=== PATIENT | female | born 1960 | race Hispanic/Latino ===

== ENCOUNTER → 2016-07-15 | Outpatient (CLI) | payer OTHER ==
--- OUTSIDE RECORDS SUMMARY | 2016-07-15 16:07 | XMS REPORT | Continuity of Care Document ---
Author Author [facility] Organization [facility] Address Unknown Phone Unavailable Allergies Medications Problems Date Dx Coded Attending Type Code Diagnosis Diagnosed By 09/28/2008 BERTRAM TREVIZO APRN 034.0 STREPTOCOCCAL SORE THROAT 09/28/2008 LAMONT COFFMAN APRN 034.0 STREPTOCOCCAL SORE THROAT 09/28/2008 ESTES LOWELL ALTAMIRANOA K 034.0 STREPTOCOCCAL SORE THROAT 09/28/2008 ESTES DO AMAN K 034.0 STREPTOCOCCAL SORE THROAT 03/01/2009 BERTRAM TREVIZO APRN E 487.1 INFLUENZA, WITH OTHER RESPIRATORY MANIFESTATIONS 03/01/2009 LAMONT COFFMAN APRN 487.1 INFLUENZA, WITH OTHER RESPIRATORY MANIFESTATIONS 03/01/2009 ESTES DO AMAN K 487.1 INFLUENZA, WITH OTHER RESPIRATORY MANIFESTATIONS 03/01/2009 ESTES DO, AMAN K 487.1 INFLUENZA, WITH OTHER RESPIRATORY MANIFESTATIONS 12/10/2010 BERTRAM TREVIZO APRN E 278.02 Overweight 12/10/2010 EATLAMONT GREENBERG APRN L 278.02 Overweight 12/10/2010 ESTES DOLOWELLA K 278.02 Overweight 12/10/2010 ESTES DO, AMAN K 278.02 Overweight 12/16/2010 BERTRAM TREVIZO APRN E 244.9 HYPOTHYROIDISM 12/16/2010 BERTRAM TREVIZO APRN E 790.29 HYPERGLYCEMIA 12/16/2010 LAMONT COFFMAN APRN L 244.9 HYPOTHYROIDISM 12/16/2010 LAMONT COFFMAN APRN L 790.29 HYPERGLYCEMIA 12/16/2010 ESTES DO, AMAN K 244.9 HYPOTHYROIDISM 12/16/2010 ESTES DO, AMAN K 790.29 HYPERGLYCEMIA 12/16/2010 ESTES DO, AMAN K 244.9 HYPOTHYROIDISM 12/16/2010 ESTES DO, AMAN K 790.29 HYPERGLYCEMIA 12/24/2010 BERTRAM TREVIZO APRN E 277.7 DYSMETABOLIC SYNDROME X 12/24/2010 HELLWIG BODY DESIGNER, BERTRAM E 616.10 VAGINITIS 12/24/2010 HELLWIG BODY DESIGNER, BERTRAM E 623.7 VAGINAL POLYP 12/24/2010 HELLWIG BODY DESIGNER, BERTRAM E 625.0 FEMALE DYSPAREUNIA DUE TO A PHYSICAL CONDITION 12/24/2010 JOSELINE BODY DESIGNERKASIEE E V72.31 ROUTINE PELVIC EXAM 12/24/2010 EATON BODY DESIGNER LAMONT L 277.7 DYSMETABOLIC SYNDROME X 12/24/2010 EATON BODY DESIGNER, LAMONT L 616.10 VAGINITIS 12/24/2010 EATON BODY DESIGNER, LAMONT L 623.7 VAGINAL POLYP 12/24/2010 EATON BODY DESIGNER, LAMONT L 625.0 FEMALE DYSPAREUNIA DUE TO A PHYSICAL CONDITION 12/24/2010 EATON BODY DESIGNER, LAMONT L V72.31 ROUTINE PELVIC EXAM 12/24/2010 ESTES DO, AMAN K 277.7 DYSMETABOLIC SYNDROME X 12/24/2010 ESTES DO, AMAN K 616.10 VAGINITIS 12/24/2010 ESTES DO, AMAN K 623.7 VAGINAL POLYP 12/24/2010 ESTES DO, AMAN K 625.0 FEMALE DYSPAREUNIA DUE TO A PHYSICAL CONDITION 12/24/2010 ESTES DO, AMAN K V72.31 ROUTINE PELVIC EXAM 12/24/2010 ESTES DO, AMAN K 277.7 DYSMETABOLIC SYNDROME X 12/24/2010 ESTES DO, AMAN K 616.10 VAGINITIS 12/24/2010 ESTES DO, AMAN K 623.7 VAGINAL POLYP 12/24/2010 ESTES DO, AMAN K 625.0 FEMALE DYSPAREUNIA DUE TO A PHYSICAL CONDITION 12/24/2010 ESTES DO, AMAN K V72.31 ROUTINE PELVIC EXAM 09/03/2013 BERTRAM TREVIZO APRN E 477.9 ALLERGIC RHINITIS CAUSE UNSPECIFIED 09/03/2013 EATON BODY DESIGNERLAMONT L 477.9 ALLERGIC RHINITIS CAUSE UNSPECIFIED 09/03/2013 ESTES DO, AMAN K 477.9 ALLERGIC RHINITIS CAUSE UNSPECIFIED 09/03/2013 ESTES DO, AMAN K 477.9 ALLERGIC RHINITIS CAUSE UNSPECIFIED 12/29/2013 ESTES DO, AMAN K V73.81 HPV SCREENING 12/29/2013 AMAN ESTES DO V74.5 STD SCREEN 12/29/2013 AMAN ESTES DO V76.10 BREAST CANCER SCREENING 12/29/2013 AMAN ESTES DO V76.2 CERVICAL CANCER SCREENING (PAP SMEAR) Procedures Code Description [place] [address] H PYLORI (IN-HOUSE) 09/03/2013 17939 ROUTINE VENIPUNCTURE 09/08/2013 54222 CMP 09/08/2013 25749 A1C (RML) 2013 45788 CBC 09/08/2013 THYANA THYROID ANALYZER 09/08/2013 48746 ROUTINE VENIPUNCTURE 12/21/2013 66020 MICRO ALBUMIN-IN HOUSE 12/21/2013 71938 LIPID PANEL 12/21 20562 MICROALBUMIN 10/2013 THYANA THYROID ANALYZER 12/21/2013 73317 T4 FREE 2013 Results Encounters ACCT No. Visit Date/Time Discharge Status Pt. Type Provider Facility Loc./Unit Complaint [id number] 01/11/2014 14:09:00 2013 23:59:59 CLS Outpatient
--- NOTE | 2016-07-15 18:29 | Diagnostic Imaging Report ---
PROCEDURE: US Thyroid. TECHNIQUE: Multiple real-time grayscale images were obtained of the thyroid in various projections. INDICATION: Hypothyroidism. I have no previous. FINDINGS: Both lobes of the thyroid appeared within normal limits of size, the right 4.3 x 1.9 x 1.4 cm, the left 4.2 x 1.2 x 1.3 cm. No discrete solid or cystic nodule is found. However, both lobes showed diffusely heterogeneous parenchyma. No abnormal color Doppler blood flow. The isthmus nonfocal. IMPRESSION: Normal volume thyroid with no focal mass; however, diffuse heterogeneity of the parenchyma bilaterally is noted with no abnormal color Doppler flow. No identifiable mass. Dictated by: Dictated on workstation # [id number]
== END ==
LOC: RAD 13:18
PROVIDERS: ATTEND Nurse Practitioner Family
DX: R93.8 Abnormal findings on diagnostic imaging of other specified body structures (principal); E03.9 Hypothyroidism, unspecified
CPT/HCPCS: 76536